=== PATIENT | male | born 1955 | race Caucasian/White ===

== ENCOUNTER 2017-08-18 20:24 | Emergency (ER) | payer SELFPAY ==
[~2017-08-18] VITALS: Ht 182.9 cm; Wt 85.0 kg
[~2017-08-18 20:24] MED LIST: CALC1TAB53 PO; CLON.1 PO; IBUP-1116 PO; LISI-587 PO; ULTR50TA PO; VITA400C58 PO
[2017-08-18 20:29] VITALS: BP 199/110; PULSE 72; RESP 18; TEMP 97.9; O2SAT 94
--- NOTE | 2017-08-18 20:35 | PD ---
HPI Chief Complaint: Headache Time Seen by Provider: 20:27 Travel History International Travel<30 days: No Contact w/Intl Traveler<30days: No Traveled to known affect area: No History of Present Illness HPI 62-year-old male with history of hypertension, presents to the emergency department in law enforcement custody for evaluation of a headache. Patient states he did not take his evening antihypertensives. He states when he got arrested he felt his face gets hot and has had "ache. He states there was a throbbing in his scalp. He states this generally means his blood pressure is high. He told the business law teacher who arrested him and is now here for evaluation. Describes the headache as a general lysed ache. There is no thunderclap onset. No focal deficits or weakness. No photosensitivity. No nausea. No other symptoms to report. PFSH Past Medical History Hx Anticoagulant Therapy: Yes (ASA) Anxiety: Yes Depression: Yes Cancer: Yes (skin cancer) Cardiovascular Problems: Yes (heart murmur) Diabetes: No Endocrine: No Genitourinary: No Headaches: Yes Hepatitis: No Hiatal Hernia: No Hypertension: Yes Immune Disorder: No Inguinal Hernia: Yes (RIGHT) Musculoskeletal: Yes (3 herniated disc lower back) Neurologic: No Psychiatric: Yes (anxiety and depression) Reproductive: No Respiratory: No Thyroid Disease: No Triglycerides - High: Yes Past Surgical History Abdominal Surgery: Yes (right inguinal hernia) AICD: No Joint Replacement: No Pacemaker: No Social History Alcohol Use: Yes (OCCASIONAL) Tobacco Use: No Substance Use: No Allergies-Medications (Allergen,Severity, Reaction): Coded Allergies: No Known Allergies (Unverified , 08/18/17) Reported Meds & Prescriptions Reported Meds & Active Scripts Active Reported Lisinopril-Hctz 20-25 Mg Tab 1 Tab PO BID Review of Systems Except as stated in HPI: all other systems reviewed are Neg Physical Exam Narrative GENERAL: Well-nourished male patient, in no acute distress. SKIN: Focused skin assessment warm/dry. HEAD: Atraumatic. Normocephalic. EYES: Pupils equal and round. No scleral icterus. No injection or drainage. ENT: No nasal bleeding or discharge. Mucous membranes pink and moist. NECK: Trachea midline. No JVD. CARDIOVASCULAR: Regular rate and rhythm. No murmur appreciated. RESPIRATORY: No accessory muscle use. Clear to auscultation. Breath sounds equal bilaterally. GASTROINTESTINAL: Abdomen soft, non-tender, nondistended. Hepatic and splenic margins not palpable. MUSCULOSKELETAL: No obvious deformities. No clubbing. No cyanosis. No edema. NEUROLOGICAL: Awake and alert. No obvious cranial nerve deficits. Motor grossly within normal limits. Normal speech. Data Data Last Documented VS Vital Signs Date Time Temp Pulse Resp B/P (MAP) Pulse Ox O2 Delivery O2 Flow Rate FiO2 08/18/17 22:27 62 16 174/104 (127) 98 08/18/17 20:34 Room Air 08/18/17 20:29 97.9 Orders Orders Clonidine (Catapres) (08/18/17 20:45) Lisinopril (Prinivil) (08/19/17 09:00) Hydrochlorothiazide (Hydrodiuril) (08/18/17 21:45) Lisinopril (Prinivil) (08/18/17 22:00) [facility] Medical Decision Making Medical Screen Exam Complete: Yes Emergency Medical Condition: Yes Medical Record Reviewed: Yes Differential Diagnosis Hypertension urgency versus crisis versus headache acute versus recurrent versus migraine versus tension headache versus cluster headache Narrative Course 62-year-old male presents to emergency department for evaluation. Patient is in law enforcement custody. He describes a generalized ache of his head and throbbing on his scalp. His blood pressure is elevated. He'll be given clonidine to bring this down. Upon reassessment, the patient's blood pressure has reduced but remains elevated. He states his headache is completely gone and that throbbing sensation has also resolved. I will give him his nighttime dose of his [place] and HCTZ. He is medically cleared and will be discharged and law enforcement custody at this time. Diagnosis Primary Impression: Head ache Qualified Codes: R51 - Headache Additional Impression: Hypertension Qualified Codes: I10 - Essential (primary) hypertension Referrals: Primary Care Physician Patient Instructions: Chronic Hypertension (ED), General Instructions Additional Instructions: Follow-up with primary care provider Continue medication as prescribed Return immediately with any acute worsening symptoms Med/Other Pt SpecificInfo: No Change to Meds Disposition: [address] ENFORCEMNT Condition: Stable [place] nava LAUREN Aug 18, 2017 20:35
[2017-08-18] MEDS ORDERED: LISI20TA3 PO (20:38)
[2017-08-18] MEDS ORDERED: cloNIDine HCL 0.1 MG TAB PO ONE (20:45)
[2017-08-18 21:23] VITALS: BP 176/103
[2017-08-18] MEDS ORDERED: HYDROCHLOROTHIAZIDE 25 MG TAB PO ONE (21:45)
[2017-08-18] MEDS ORDERED: LISINOPRIL 20 MG TAB PO ONE (22:00)
[2017-08-18 22:27] VITALS: BP 174/104
[2017-08-19] MEDS ORDERED: LISINOPRIL 20 MG TAB PO SCH (09:00)
== END 2017-08-18 22:29 ==
LOC: NEPD 20:24
DX: R51 Headache (principal); I10 Essential (primary) hypertension; F41.9 Anxiety disorder, unspecified; Z79.82 Long term (current) use of aspirin
CPT/HCPCS: 99283